=== PATIENT | female | born 1980 | race Caucasian/White ===

== ENCOUNTER 2017-05-15 01:53 | Emergency (ER) | payer OTHER ==
[2017-05-15 01:58] VITALS: TEMP 97.9
[2017-05-15 02:42] LABS: COLOR YELLOW; LEUKOCYTE ESTERASE,URINE 3+ (NEGATIVE); NITRITE,URINE NEGATIVE (NEGATIVE)
[2017-05-15 02:51] LABS: BACTERIA 3+ /hpf (NONE SEEN); MUCUS TRACE /lpf (NONE-1+); RBC,URINE 50-182 /hpf (0-3); WBC,URINE 50-182 /hpf (0-3)
[2017-05-15] MEDS ORDERED: NITROFURANTOIN MACROBID 100 MG CAP PO ONE (03:20)
[2017-05-15] MEDS ORDERED: NITROFURANTOIN 100MG PREPACK#2 BTL TAKEHOME ONE (03:20)
[2017-05-15] MEDS ORDERED: PHENAZOPYRIDINE HCL 200 MG TAB PO ONE (03:20)
--- NOTE | 2017-05-15 03:27 | EDPHY ---
H & P Stated Complaint: BLOOD IN URINE SINCE THIS AM, UTI SYMPTOMS Time Seen by Provider: 05/15/17 02:18 HPI/ROS: HPI The patient presents with dysuria, urgency, hematuria which have been present tonight and have gotten progressively worse. She has a history of UTIs, last was about a year ago. She does not have any fever, vomiting, back pain.. REVIEW OF SYSTEMS Constitutional: No fever, no chills. Gastrointestinal: No abdominal pain, no vomiting. Genitourinary: Positive for hematuria. Musculoskeletal: No back pain. Skin: No rashes. Neurological: No headache. PMHx: Healthy PHYSICAL General Appearance: Alert, no distress Eyes: Pupils equal and round no pallor or injection ENT, Mouth: Mucous membranes moist Respiratory: There are no retractions, lungs are clear to auscultation Cardiovascular: Regular rate and rhythm Gastrointestinal: Abdomen is soft and non-tender, no masses, bowel sounds normal Neurological: A&O, moves all extremities Skin: Warm and dry, no rashes Musculoskeletal: Neck is supple non tender Extremities: symmetrical, full range of motion Psychiatric: Patient is oriented X 3, there is no agitation Source: Patient Exam Limitations: No limitations - Personal History LMP (Females 10-55): 1-7 Days Ago Current Tetanus Diphtheria and Acellular Pertussis (TDAP): Unsure - Medical/Surgical History Hx Asthma: No Hx Chronic Respiratory Disease: No Hx Diabetes: No Hx Cardiac Disease: No Hx Renal Disease: No Hx Cirrhosis: No Hx Alcoholism: No Hx HIV/AIDS: No Hx Splenectomy or Spleen Trauma: No Other PMH: oral sx, skin graft, HYPOTHYROID - Social History Smoking Status: Never smoked Constitutional: Initial Vital Signs Temperature (C) 36.6 C 05/15/17 01:56 Heart Rate 68 05/15/17 01:56 Respiratory Rate 16 05/15/17 01:56 Blood Pressure 117/64 05/15/17 01:56 O2 Sat (%) 99 05/15/17 01:56 O2 Delivery Mode Room Air Allergies/Adverse Reactions: No Known Allergies Allergy (Unverified 10/01/14 23:20) Home Medications: Medication Instructions Recorded Cabergoline [Dostinex (*)] 10/01/14 Levothyroxine [Synthroid 25 mcg 10/01/14 (*)] Nitrofurantoin Monohyd/M-Cryst 100 mg PO BID 5 Days #10 capsule 05/15/17 [Macrobid 100 mg Capsule] Medical Decision Making Differential Diagnosis: This is a 37-year-old female with history of UTI who presents from home with irritative voiding symptoms and hematuria for the last 1 day. Differential diagnosis includes urinary tract infection, ureterolithiasis, pyelonephritis. In the emergency department, urinalysis was obtained which did demonstrate signs of urinary tract infection. I feel she most likely has hemorrhagic cystitis. I will treat her with Macrobid and Pyridium. She will be discharged from the emergency department in good condition. - Data Points Laboratory Results: 05/15/17 02:06 Urine Color YELLOW Urine Appearance MODERATELY TURBID Urine pH 5.0 (5.0-7.5) Ur Specific [place] 1.014 (1.002-1.030) Urine Protein 2+ H (NEGATIVE) Urine Ketones NEGATIVE (NEGATIVE) Urine Blood 3+ H (NEGATIVE) Urine Nitrate NEGATIVE (NEGATIVE) Urine Bilirubin NEGATIVE (NEGATIVE) Urine Urobilinogen NEGATIVE EU EU (0.2-1.0) Ur Leukocyte Esterase 3+ H (NEGATIVE) Urine RBC 50-182 /hpf H /hpf (0-3) Urine WBC 50-182 /hpf H /hpf (0-3) Ur Epithelial Cells TRACE /lpf /lpf (NONE-1+) Urine Bacteria 3+ /hpf H /hpf (NONE SEEN) Urine Mucus TRACE /lpf /lpf (NONE-1+) Urine Glucose NEGATIVE (NEGATIVE) Medications Given: Discontinued Medications Nitrofurantoin (Macrobid 100mg Prepack#2) 1 btl TAKEHOME EDNOW ONE PRN Reason: Protocol Stop: 05/15/17 03:21 Last Admin: 05/15/17 03:43 Dose: 1 btl Nitrofurantoin Macrocrystals (Macrobid) 100 mg PO EDNOW ONE PRN Reason: Protocol Stop: 05/15/17 03:21 Last Admin: 05/15/17 03:44 Dose: 100 mg Phenazopyridine HCl (Pyridium) 200 mg PO EDNOW ONE Stop: 05/15/17 03:21 Last Admin: 05/15/17 03:44 Dose: 200 mg Departure - Departure Disposition: Home, Routine, Self-Care Clinical Impression: Urinary tract infection Qualifiers: Urinary tract infection type: acute cystitis Hematuria presence: with hematuria Qualified Code(s): N30.01 - Acute cystitis with hematuria Condition: Good Instructions: Nitrofurantoin Combination (By mouth), Urinary Tract Infection in Women (ED) Prescriptions: Nitrofurantoin Monohyd/M-Cryst [Macrobid 100 mg Capsule] 100 mg PO BID 5 Days # 10 capsule
[2017-05-15 03:54] VITALS: BP 107/65; PULSE 58; RESP 14; O2SAT 96
== END 2017-05-15 03:52 | disposition home or self-care (01) ==
DX: N30.01 Acute cystitis with hematuria (principal); B96.89 Other specified bacterial agents as the cause of diseases classified elsewhere